=== PATIENT | male | born 1990 | race American Indian/Alaskan Native ===

== ENCOUNTER 2017-07-10 21:51 | Emergency (ER) | payer SELFPAY ==
[2017-07-10] MEDS ORDERED: TORADOL IM ONE (23:24)
[2017-07-10] MEDS ORDERED: NORCO 7.5/325 PO ONE (23:24)
[2017-07-10] MEDS ORDERED: DECADRON IM ONE (23:25)
--- NOTE | 2017-07-10 23:31 | Emergency Department Report ---
ED Extremity Problem HPI - General Chief complaint: Extremity Problem,Nontraumatic Stated complaint: FOOT PAIN Time Seen by Provider: 07/10/17 23:23 Source: patient Mode of arrival: Ambulatory Limitations: No Limitations - History of Present Illness Initial comments: 27-year-old male comes in today for left foot pain and swelling the last 3 days. Patient reports that he has a history of gout and then developed this since 2017. Patient reports he was taken allopurinol 100 mg which is not helping now. Patient denies any recent trauma. MD Complaint: extremity pain, extremity swelling -: days(s) (3) Location: left History of Same: Yes (gout) Radiation: proximal Severity scale (0 -10): 9 Quality: burning, aching, sharp Consistency: constant Improves with: nothing Worsens with: weight bearing, walking Associated Symptoms: denies other symptoms - Related Data Previous Rx's Medication Instructions Recorded Last Taken Type Colchicine 0.6 mg PO QDAY #7 tablet 07/11/17 Unknown Rx Indomethacin 50 mg PO Q8H #30 capsule 07/11/17 Unknown Rx Prednisone [predniSONE 10 mg 10 mg PO .TAPER #1 tab.ds.pk 07/11/17 Unknown Rx (6-Day Pack, 21 Tabs)] Allergies Allergy/AdvReac Type Severity Reaction Status Date / Time No Known Allergies Allergy Unverified 07/10/17 22:01 ED Review of Systems ROS: Stated complaint: FOOT PAIN Other details as noted in HPI Constitutional: denies: chills, fever Eyes: denies: eye pain, eye discharge, vision change ENT: denies: ear pain, throat pain Respiratory: denies: cough, shortness of breath, wheezing Cardiovascular: denies: chest pain, palpitations Endocrine: no symptoms reported Gastrointestinal: denies: abdominal pain, nausea, diarrhea Genitourinary: denies: urgency, dysuria Musculoskeletal: joint swelling, arthralgia Skin: denies: rash, lesions Neurological: denies: headache, weakness, paresthesias Psychiatric: denies: anxiety, depression Hematological/Lymphatic: denies: easy bleeding, easy bruising ED Past Medical Hx - Past Medical History Previous Medical History?: No - Surgical History Past Surgical History?: No - Social History Smoking Status: Current Every Day Smoker Substance Use Type: Alcohol - Medications Home Medications: Home Medications Medication Instructions Recorded Confirmed Last Taken Type Colchicine 0.6 mg PO QDAY #7 tablet 07/11/17 Unknown Rx Indomethacin 50 mg PO Q8H #30 capsule 07/11/17 Unknown Rx Prednisone [predniSONE 10 mg 10 mg PO .TAPER #1 tab.ds.pk 07/11/17 Unknown Rx (6-Day Pack, 21 Tabs)] ED Physical Exam - General Limitations: No Limitations General appearance: alert, in no apparent distress - Head Head exam: Present: atraumatic, normocephalic - Eye Eye exam: Present: normal appearance - ENT ENT exam: Present: mucous membranes moist - Neck Neck exam: Present: normal inspection - Respiratory Respiratory exam: Present: normal lung sounds bilaterally. Absent: respiratory distress - Cardiovascular Cardiovascular Exam: Present: regular rate, normal rhythm. Absent: systolic murmur, diastolic murmur, rubs, gallop - Rectal Rectal exam: Present: deferred - Expanded Lower Extremity Exam Left Hip exam: Present: full ROM Upper Leg exam: Present: normal inspection, full ROM Knee exam: Present: normal inspection, full ROM Lower Leg exam: Present: normal inspection, full ROM, tenderness Ankle exam: Present: full ROM, tenderness, swelling, erythema Foot/Toe exam: Present: full ROM, tenderness, swelling, erythema Neuro vascular tendon exam: Present: no vascular compromise - Back Exam Back exam: Present: normal inspection - Neurological Exam Neurological exam: Present: alert, oriented X3 - Psychiatric Psychiatric exam: Present: normal affect, normal mood - Skin Skin exam: Present: warm, dry, intact, normal color. Absent: rash ED Medical Decision Making - Radiology Data Radiology results: report reviewed, image reviewed IMPRESSION: There is no acute bony abnormality. There is generalized soft tissue swelling.. - Medical Decision Making Patient's been evaluated by this provider fast track. This provider's given patient dexamethasone 8 mg IM, Toradol 30 mg IM, Dexter 7.5 mg IM and waiting results from x-ray. Discussed patient with the patient to give a handout of foods to avoid. Place him on indomethacin as well as colchicine. And a prednisone pack. Patient verbalized understanding Critical care attestation.: If time is entered above; I have spent that time in minutes in the direct care of this critically ill patient, excluding procedure time. ED Disposition Clinical Impression: Gout attack Qualifiers: Gout site: foot Gout etiology: unspecified cause Laterality: right Qualified Code(s): M10.9 - Gout, unspecified Disposition: DC-01 TO HOME OR SELFCARE Is pt being admited?: No Does the pt Need Aspirin: No Condition: Stable Instructions: Acute Gouty Arthritis (ED) Additional Instructions: Please take medication as prescribed. Follow up with her primary care provider if symptoms persist or gets worse. Prescriptions: Colchicine 0.6 mg PO QDAY #7 tablet Indomethacin 50 mg PO Q8H #30 capsule Prednisone [predniSONE 10 mg (6-Day Pack, 21 Tabs)] 10 mg PO .TAPER #1 tab.ds.pk Referrals: PRIMARY CARE, [Primary Care Provider] - 3-5 Days Forms: Work/School Release Form(ED), Accompanied Note Print Language: LIBERIAN
--- NOTE | 2017-07-11 01:39 | XRay Report ---
FINAL REPORT PROCEDURE: XR FOOT 3+V LT TECHNIQUE: LEFT foot radiographs, AP, lateral, and oblique views. CPT 47875 HISTORY: swollen/red/painful COMPARISON: No prior studies are available for comparison. FINDINGS: Fracture (s) and/or Dislocation(s): None . Alignment: Normal . Joint space(s): Normal . Soft tissues: There is generalized soft tissue swelling.. Bone mineralization: Normal . Foreign bodies: None . Calcaneal spurring: None . IMPRESSION: There is no acute bony abnormality. There is generalized soft tissue swelling..
[2017-07-11] MEDS ORDERED: NORCO 5/325 ONE (02:20)
[2017-07-11] MEDS ORDERED: NORCO 5/325 PO ONE (02:21)
[2017-07-11 02:29] VITALS: BP 153/92
== END 2017-07-11 02:31 | disposition home or self-care (01) ==
LOC: ED 21:51
DX: M10.9 Gout, unspecified (principal); F17.200 Nicotine dependence, unspecified, uncomplicated
CPT/HCPCS: 73630; 96372; 99283; J1100; J1885

== ENCOUNTER 2018-09-19 05:04 | Inpatient (IN) | payer OTHER ==
[2018-09-19 06:11] LABS: BUN/Creatinine Ratio 25; Blood Urea Nitrogen 10 mg/dL (9-20); Calcium 8.8 mg/dL (8.4-10.2); Hemolysis Index 268
[2018-09-19 06:22] LABS: Basophils # (Auto) 0.5 K/mm3 (0.0-0.1); Eosinophils # (Auto) 0.1 K/mm3 (0.0-0.4); Monocytes # (Auto) 0.7 K/mm3 (0.0-0.8); Monocytes % (Auto) 5.6 % (0.0-7.3)
[2018-09-19 06:27] LABS: Alanine Aminotransferase 10 units/L (7-56); Albumin 3.6 g/dL (3.9-5)
[2018-09-19] MEDS ORDERED: HumuLIN R IV ONE ×2 (07:24→15:50)
[2018-09-19] MEDS ORDERED: NACL 0.9% 1000 ML 1,000 ML IV ONE ×3 (07:24→19:39)
[2018-09-19 07:49] LABS: Hematocrit 47.7 % (35.5-45.6); Hemoglobin 16.4 gm/dl (11.8-15.2); Red Blood Count 5.49 M/mm3 (3.65-5.03)
[2018-09-19 07:50] LABS: Mean Corpuscular HGB Conc 34 % (32-34); Mean Corpuscular Volume 87 fl (84-94)
[2018-09-19 07:51] LABS: Basophils % (Auto) 0.9 % (0.0-1.8); Lymphocytes # (Auto) 2.6 K/mm3 (1.2-5.4); Lymphocytes % (Auto) 19.6 % (13.4-35.0)
[2018-09-19] MEDS ORDERED: MORPHINE IV ONE ×2 (07:58→10:15)
--- NOTE | 2018-09-19 08:13 | XRay Report ---
ABDOMEN, 2 views: History: Abdominal pain. There is no evidence of free air beneath the diaphragms. The gas pattern within the abdomen is unremarkable. There is no evidence of bowel dilatation, significant air-fluid levels, or pathologic calcifications. There is mild to moderate stool throughout the right hemicolon. Organ shadows are unremarkable. IMPRESSION: Mild fecal retention. No acute process.
[2018-09-19 08:33] LABS: Platelet Count 158 K/mm3 (140-440)
--- NOTE | 2018-09-19 08:38 | Emergency Department Report ---
HPI - General Chief Complaint: Abdominal Pain Time Seen by Provider: 09/19/18 07:12 - HPI HPI: 28-year-old male presents to the emergency department with a complaint of some generalized abdominal pain radiating to the lower back, nausea and vomit ing, and some intermittent pain in the chest with breathing, that has been going on for the past week. The patient has a past medical history of hypertension and gout. He is a former smoker but denies any illicit drug use. He follows up with rayshawn castro and saw them about a week or so ago for some issues with his gout. He denies any recent travel or sick contacts at home. Patient also admits to increased urination and thirst over the past week. ED Past Medical Hx - Past Medical History Previous Medical History?: Yes Hx Hypertension: Yes Hx Arthritis: Yes (gout) - Surgical History Past Surgical History?: No - Social History Smoking Status: Former Smoker Substance Use Type: None - Medications Home Medications: Home Medications Medication Instructions Recorded Confirmed Last Taken Type No Known Home Medications [No 09/19/18 09/19/18 Unknown History Reported Home Medications] ED Review of Systems ROS: Stated complaint: CHEST PAIN,VOMITING,FREQENTLY URIAN Other details as noted in HPI Comment: All other systems reviewed and negative Constitutional: denies: chills, fever Eyes: denies: eye pain, vision change ENT: denies: ear pain, throat pain Respiratory: shortness of breath. denies: cough Cardiovascular: denies: palpitations, edema Endocrine: increased thirst, increased urine Gastrointestinal: abdominal pain, nausea, vomiting Genitourinary: frequency. denies: dysuria Musculoskeletal: back pain. denies: arthralgia Skin: denies: rash, lesions Neurological: denies: headache, weakness Physical Exam - Physical Exam Vital Signs: Vital Signs 09/19/18 05:23 Temperature 98.1 F Pulse Rate 121 H Respiratory 18 Rate Blood Pressure 155/105 O2 Sat by Pulse 96 Oximetry Physical Exam: GENERAL: The patient is well-developed well-nourished. HENT: Normocephalic. Atraumatic. Patient has moist mucous membranes. EYES: Extraocular motions are intact. Pupils equal reactive to light bilaterally. NECK: Supple. Trachea is midline. CHEST/LUNGS: Clear to auscultation. There is no respiratory distress noted. HEART/CARDIOVASCULAR: Regular. There is mild tachycardia. There is no murmur. ABDOMEN: Abdomen is soft. Upper abdominal tenderness to palpation. No guarding. Patient has normal bowel sounds. There is no abdominal distention. SKIN: Skin is warm and dry. NEURO: The patient is awake, alert, and oriented. The patient is cooperative. The patient has no focal neurologic deficits. The patient has normal speech. MUSCULOSKELETAL: There is no tenderness or deformity. There is no evidence of acute injury. ED Course Vital Signs 09/19/18 05:23 Temperature 98.1 F Pulse Rate 121 H Respiratory 18 Rate Blood Pressure 155/105 O2 Sat by Pulse 96 Oximetry ED Medical Decision Making - Lab Data Result diagrams: 09/19/18 05:41 09/19/18 05:41 - EKG Data -: EKG Interpreted by Me EKG shows normal: sinus rhythm, axis (left axis deviation), intervals, QRS complexes (Q waves in the inferior leads), ST-T waves Rate: tachycardia (116 bpm) - EKG Data When compared to previous EKG there are: previous EKG unavailable Interpretation: other (sinus tachycardia, left axis deviation, Q waves in inferior leads) - Radiology Data Radiology results: report reviewed, image reviewed interpreted by me: Chest x-ray does not show any acute process. There are no pleural effusions, obvious pneumonia and there is no pneumothorax. Abdominal x-ray shows some increased stool volume but otherwise nonspecific nonobstructive bowel gas. CT ABDOMEN PELVIS WITH CONTRAST: HISTORY: abdominal pain. COMPARISON: Abdominal x-ray performed earlier the same day. TECHNIQUE: Helical CT in 1.25mm intervals following IV contrast. Sagittal and coronal reconstructions. FINDINGS: Lung bases: Normal. Liver: There is mild diffuse fatty infiltration throughout the liver. No enlargement or focal mass. Biliary system: Normal. Pancreas: There is subtle thickening of the tail of the pancreas. There is trace fat stranding and fluid in the left anterior pararenal space. The remainder of the pancreas is unremarkable. Spleen: Normal. Kidneys/ureters/bladder: Normal. Adrenal glands: Normal. Aorta: Normal. Intestines: Mild fecal retention. Within normal limits otherwise given no oral contrast was administered. Appendix: Normal. Pelvic viscera: Normal. Ascites: Trace. Adenopathy: None. Musculoskeletal: Intact. IMPRESSION: There is subtle thickening of the pancreatic tail with trace surrounding fat stranding and fluid. Correlate for early acute pancreatitis. Fatty infiltration of the liver. Transcribed By: TTR Dictated By: ROGELIO DOTY JR, MD Electronically Authenticated By: ROGELIO DOTY JR, MD Signed Date/Time: 09/19/18 1001 - Medical Decision Making This patient presents to the emergency department with a complaint of some abdominal pain going into his back, as well as some intermittent chest discomfort with respirations. Patient's labs show hyponatremia with a sodium of 122 and one appears to be new onset diabetes mellitus with a blood sugar of about 400 from his serum draw. There is a mild elevation in the anion gap there is no venous acidosis and he appears low suspicion for diabetic ketoacidosis. Chest x-ray does not show any acute process. Abdominal x-ray shows nonspecific nonobstructive bowel gas. A CT scan of the abdomen and pelvis with IV contrast was done that came back showing signs of early pancreatitis. With the early pancreatitis, continued abdominal pain despite pain medication, and his hyponatremia, the patient will be presented to the admitting hospitalist Dr. Saucedo for either admission or further disposition. - Differential Diagnosis Pancreatitis, cholelithiasis, IA, PE, Bowel Obstruction Critical Care Time: No Critical care attestation.: If time is entered above; I have spent that time in minutes in the direct care of this critically ill patient, excluding procedure time. ED Disposition Clinical Impression: Diabetes mellitus, new onset, Acute hyperglycemia Pancreatitis Qualifiers: Chronicity: acute Pancreatitis type: unspecified pancreatitis type Acute pancreatitis complication: unspecified Qualified Code(s): K85.90 - Acute pancreatitis without necrosis or infection, unspecified Disposition: -09 OP ADMIT IP TO THIS HOSP Is pt being admited?: Yes Condition: Fair Instructions: Diabetes Mellitus Type 2 in Adults (ED) Referrals: ARSENIO MICHEL MD [Primary Care Provider] - 3-5 Days Time of Disposition: 15:47
--- NOTE | 2018-09-19 09:06 | XRay Report ---
PROCEDURE: XR CHEST 1V AP TECHNIQUE: Chest radiograph single view. HISTORY: Chest Pain COMPARISONS: None . FINDINGS: No mediastinal shift. Cardiac silhouette is not enlarged. No pneumothorax, effusion, or focal pulmona ry opacity identified. No acute skeletal findings. IMPRESSION: No acute pulmonary finding identified. This document is electronically signed by Donavan Montoya MD., September 19 2018 09:04:29 AM ET
--- NOTE | 2018-09-19 10:06 | Cat Scan Report ---
CT ABDOMEN PELVIS WITH CONTRAST: HISTORY: abdominal pain. COMPARISON: Abdominal x-ray performed earlier the same day. TECHNIQUE: Helical CT in 1.25mm intervals following IV contrast. Sagittal and coronal reconstructions. FINDINGS: Lung bases: Normal. Liver: There is mild diffuse fatty infiltration throughout the liver. No enlargement or focal mass. Biliary system: Normal. Pancreas: There is subtle thickening of the tail of the pancreas. There is trace fat stranding and fluid in the left anterior pararenal space. The remainder of the pancreas is unremarkable. Spleen: Normal. Kidneys/ureters/bladder: Normal. Adrenal glands: Normal. Aorta: Normal. Intestines: Mild fecal retention. Within normal limits otherwise given no oral contrast was administered. Appendix: Normal. Pelvic viscera: Normal. Ascites: Trace. Adenopathy: None. Musculoskeletal: Intact. IMPRESSION: There is subtle thickening of the pancreatic tail with trace surrounding fat stranding and fluid. Correlate for early acute pancreatitis. Fatty infiltration of the liver.
[2018-09-19 10:43] LABS: Bilirubin,Urine NEG (Negative); Blood,Urine NEG (Negative); Color,Urine Straw (Yellow); Protein,Urine <15 mg/dL mg/dL (Negative); Urobilinogen,Urine < 2.0 mg/dL (<2.0)
[2018-09-19] MEDS ORDERED: NACL 0.9% 1000 ML 2,000 ML IV ONE (12:39)
[2018-09-19 14:39] LABS: Amphetamine Screen,Urine PRESUMPTIVE NEGATIVE; Benzodiazepines Screen,Urine PRESUMPTIVE NEGATIVE; Cannabinoid Screen,Urine PRESUMPTIVE NEGATIVE; Cocaine Screen,Urine PRESUMPTIVE NEGATIVE; Methadone Screen,Urine PRESUMPTIVE NEGATIVE; Opiate Screen,Urine PRESUMPTIVE NEGATIVE
[2018-09-19 16:04] LABS: BUN/Creatinine Ratio 14; Blood Urea Nitrogen 7 mg/dL (9-20); Calcium 8.2 mg/dL (8.4-10.2); Hemolysis Index 471
[2018-09-19] MEDS ORDERED: D50W (25GM) Syringe IV PRN (18:39)
[2018-09-19] MEDS ORDERED: PROVENTIL IH PRN (18:39)
[2018-09-19] MEDS ORDERED: SODIUM CHLORIDE FLUSH SYRINGE 10 ML IV PRN (18:39)
--- NOTE | 2018-09-19 18:43 | History and Physical Report ---
History of Present Illness Chief complaint: I feel nauseated,and my stomach is cramping History of present illness: 28 YO Male with Obesity presents to ED for evaluation. Pt states that he has experienced abdominal cramping, nausea, and multiple episodes of vomiting over the past 1 week with persistent symptoms over the same time frame. Pt acknowledges polydipsia, polyuria, and polyphagia. Pt transoprted to [facility] via private vehicle. Pt seen and evaluated in ED and found to have new onset Diabetes complicated by DKA, as well as SIRS. Pt initiated on DKA protocol and admitted to ICU. Pt denies fever, chills, CP, Palpitations, Productive cough, recent ill contacts, BRBPR, Unintentional weight loss, or skin rash. Pt also initiated on empiric antibiotic therapy for SIRS. Past History Past Medical History: diabetes Past Surgical History: No surgical history, Other (reviewed) Social history: single. denies: smoking, alcohol abuse, prescription drug abuse Family history: diabetes, hypertension Medications and Allergies Allergies Allergy/AdvReac Type Severity Reaction Status Date / Time No Known Allergies Allergy Unverified 07/10/17 22:01 Home Medications Medication Instructions Recorded Confirmed Last Taken Type No Known Home Medications [No 09/19/18 09/19/18 Unknown History Reported Home Medications] Active Meds: Active Medications Albuterol (Proventil) 2.5 mg IH Q3HRT PRN PRN Reason: Shortness Of Breath Dextrose (D50w (25gm) Syringe) 0 ml IV PRN PRN PRN Reason: Hypoglycemia Insulin Human Regular 100 (units/ Sodium Chloride) 100 mls @ 1 mls/hr IV TITR DANIEL; Protocol Sodium Chloride (Nacl 0.9% 1000 Ml) 1,000 mls @ 999 mls/hr IV BOLUS ONE Stop: 09/19/18 19:39 Potassium Chloride/Dextrose/Sod Cl (D5w/0.45% Nacl/Kcl 20 Meq) 20 meq in 1,000 mls @ 125 mls/hr IV DIRECT DANIEL Potassium Chloride (Kcl 10meq/100ml) 10 meq in 100 mls @ 100 mls/hr IV Q1H DANIEL Stop: 09/19/18 22:59 Oxycodone/Acetaminophen (Percocet 5/325) 1 tab PO Q6H PRN PRN Reason: Pain, Moderate (4-6) Sodium Chloride (Sodium Chloride Flush Syringe 10 Ml) 10 ml IV BID DANIEL Sodium Chloride (Sodium Chloride Flush Syringe 10 Ml) 10 ml IV PRN PRN PRN Reason: LINE FLUSH Review of Systems Constitutional: no weight loss, no weight gain, no fever, no chills Ears, nose, mouth and throat: no ear pain, no ear discharge, no tinnitis, no decreased hearing, no nose pain Cardiovascular: no chest pain, no orthopnea, no palpitations, no rapid/irregular heart beat, no edema, no syncope Respiratory: no cough, no cough with sputum, no excessive sputum, no hemoptysis, no shortness of breath Gastrointestinal: nausea, vomiting, no constipation, no change in bowel habits, no hematemesis, no BRBPR, no melena, no hematochezia, no loss of appetite Genitourinary Male: no hematuria, no flank pain, no discharge, no urinary frequency, no urinary hesitancy Rectal: no pain, no incontinence, no bleeding Musculoskeletal: no neck stiffness, no neck pain, no shooting arm pain, no arm n umbness/tingling, no low back pain Integumentary: no rash, no pruritis, no redness, no sores, no wounds Neurological: no transient paralysis, no paralysis, no weakness, no parathesias, no numbness, no tingling, no syncope Psychiatric: no anxiety, no memory loss, no change in sleep habits, no sleep disturbances, no insomnia Endocrine: polyphagia, polydipsia, polyuria, no cold intolerance, no heat i ntolerance Hematologic/Lymphatic: no easy bruising, no easy bleeding, no lymphadenopathy, no lymphedema Allergic/Immunologic: no urticaria, no allergic rhinitis, no wheezing, no persistent infections Exam - Constitutional Vitals: Temp Pulse Resp BP Pulse Ox 98.6 F 87 32 H 132/82 97 09/19/18 08:50 09/19/18 15:00 09/19/18 15:00 09/19/18 15:00 09/19/18 15:00 General appearance: Present: mild distress - EENT Eyes: Present: PERRL ENT: hearing intact, clear oral mucosa - Neck Neck: Present: supple, normal ROM - Respiratory Respiratory effort: normal Respiratory: bilateral: CTA - Cardiovascular Heart Sounds: Present: S1 & S2. Absent: rub, click - Extremities Extremities: pulses symmetrical, No edema Peripheral Pulses: within normal limits - Abdominal General gastrointestinal: Present: soft, non-tender, non-distended, normal bowel sounds Male genitourinary: Present: normal - Integumentary Integumentary: Present: clear, warm, dry - Musculoskeletal Musculoskeletal: gait normal, strength equal bilaterally - Psychiatric Psychiatric: appropriate mood/affect, intact judgment & insight - Neurologic Neurologic: CNII-XII intact, moves all extremities Results - Labs CBC & Chem 7: 09/19/18 05:41 09/19/18 15:28 Labs: Abnormal lab results 09/19/18 09/19/18 09/19/18 Range/Units 05:38 05:41 05:41 WBC 12.7 H (4.5-11.0) K/mm3 RBC 5.49 H (3.65-5.03) M/mm3 Hgb 16.4 H (11.8-15.2) gm/dl Hct 47.7 H (35.5-45.6) % RDW 13.0 L (13.2-15.2) % Baso # 0.5 H (0.0-0.1) K/mm3 Seg Neutrophils # 9.3 H (1.8-7.7) K/mm3 Sodium 122 L (137-145) mmol/L Potassium (3.6-5.0) mmol/L Chloride 82.8 L (98-107) mmol/L Carbon Dioxide 19 L (22-30) mmol/L BUN (9-20) mg/dL Creatinine 0.4 L (0.8-1.5) mg/dL Glucose 409 H (75-100) mg/dL POC Glucose 350 H (70-105) Hemoglobin A1c (4-6) % Calcium (8.4-10.2) mg/dL Albumin 3.6 L (3.9-5) g/dL Ur Specific [place] (1.003-1.030) 09/19/18 09/19/18 09/19/18 Range/Units 07:56 10:26 10:35 WBC (4.5-11.0) K/mm3 RBC (3.65-5.03) M/mm3 Hgb (11.8-15.2) gm/dl Hct (35.5-45.6) % RDW (13.2-15.2) % Baso # (0.0-0.1) K/mm3 Seg Neutrophils # (1.8-7.7) K/mm3 Sodium (137-145) mmol/L Potassium (3.6-5.0) mmol/L Chloride (98-107) mmol/L Carbon Dioxide (22-30) mmol/L BUN (9-20) mg/dL Creatinine (0.8-1.5) mg/dL Glucose (75-100) mg/dL POC Glucose 329 H 285 H (70-105) Hemoglobin A1c (4-6) % Calcium (8.4-10.2) mg/dL Albumin (3.9-5) g/dL Ur Specific [place] 1.055 H (1.003-1.030) 09/19/18 09/19/18 09/19/18 Range/Units 15:28 15:28 15:51 WBC (4.5-11.0) K/mm3 RBC (3.65-5.03) M/mm3 Hgb (11.8-15.2) gm/dl Hct (35.5-45.6) % RDW (13.2-15.2) % Baso # (0.0-0.1) K/mm3 Seg Neutrophils # (1.8-7.7) K/mm3 Sodium 128 L (137-145) mmol/L Potassium 5.1 H D (3.6-5.0) mmol/L Chloride 93.9 L (98-107) mmol/L Carbon Dioxide 14 L (22-30) mmol/L BUN 7 L (9-20) mg/dL Creatinine 0.5 L (0.8-1.5) mg/dL Glucose 260 H (75-100) mg/dL POC Glucose 491 H (70-105) Hemoglobin A1c 12.5 H (4-6) % Calcium 8.2 L (8.4-10.2) mg/dL Albumin (3.9-5) g/dL Ur Specific [place] (1.003-1.030) Assessment and Plan - Patient Problems (1) DKA (diabetic ketoacidoses) Current Visit: Yes Status: Acute Qualifiers: Diabetes mellitus complication detail: without coma Plan to address problem: DKA Protocol: IVF resuscitation therapy, monitor uop q shift, insulin drip, serial bmp, monitor anion gap. The high probability of a clinically significant, sudden or life threatening deterioration of the [endocrine, renal] system(s) required my full and direct attention, intervention and personal management. The aggregate critical care time was [65] minutes. This time is in addition to time spent performing reported procedures but includes the following: [x] Data Review and interpretation [x] Patient assessment and monitoring of vital signs [x] Documentation [x] Medication orders and management (2) Acidosis Current Visit: Yes Status: Acute Plan to address problem: IV bicarbonate, IVF resuscitation therapy, repeat bmp (3) SIRS (systemic inflammatory response syndrome) Current Visit: Yes Status: Acute Plan to address problem: CBC, Chest x ray, urinalysis, empiric IV antibiotic therapy (4) Obesity (BMI 30-39.9) Current Visit: Yes Status: Acute Plan to address problem: balanced diet, increased physical activity at discharge. (5) DVT prophylaxis Current Visit: Yes Status: Acute Plan to address problem: SCD to BLE while in bed., prophylactic anticoagulation
[2018-09-19] MEDS ORDERED: D5W/0.45% NACL/KCL 20 MEQ 20 MEQ/1,000 ML BAG IV SCH (19:00)
[2018-09-19] MEDS ORDERED: HumuLIN R 100 UNITS in NACL 0.9% 99 ML IV SCH (19:00)
[2018-09-19] MEDS ORDERED: KCL 10MEQ/100ML 10 MEQ/100 ML BAG IV ONE (19:13)
[2018-09-19 19:24] LABS: BUN/Creatinine Ratio 14; Blood Urea Nitrogen 7 mg/dL (9-20); Calcium 8.5 mg/dL (8.4-10.2); Hemolysis Index 638
[2018-09-19] MEDS: KCL 10MEQ/100ML 10 MEQ/100 ML BAG IV SCH ×2 (19:30→23:22)
[2018-09-19 21:21] LABS: BUN/Creatinine Ratio 16; Blood Urea Nitrogen 8 mg/dL (9-20); Calcium 8.1 mg/dL (8.4-10.2); Hemolysis Index 360
[2018-09-19] MEDS ORDERED: D5NS 1,000 ML IV SCH (22:00)
[2018-09-19] MEDS ORDERED: MORPHINE IV PRN (22:17)
[2018-09-19] MEDS: LOVENOX SUB-Q SCH (22:27)
[2018-09-19] MEDS: SODIUM CHLORIDE FLUSH SYRINGE 10 ML IV SCH (22:29)
[2018-09-19] MEDS: ROCEPHIN/NS 1 GM/50 ML 1 GM/50 ML BAG IV SCH (22:36)
[2018-09-20 00:06] LABS: BUN/Creatinine Ratio 18; Blood Urea Nitrogen 7 mg/dL (9-20); Calcium 8.2 mg/dL (8.4-10.2); Hemolysis Index 401
[2018-09-20] MEDS: KCL 10MEQ/100ML 10 MEQ/100 ML BAG IV SCH ×4 (00:24→07:19)
[2018-09-20 01:23] LABS: BUN/Creatinine Ratio 14; Blood Urea Nitrogen 7 mg/dL (9-20); Calcium 8.2 mg/dL (8.4-10.2); Hemolysis Index 249
[2018-09-20] MEDS ORDERED: KCL 10MEQ/100ML 10 MEQ/100 ML BAG IV SCH (03:00)
[2018-09-20 05:46] LABS: BUN/Creatinine Ratio 15; Blood Urea Nitrogen 6 mg/dL (9-20); Calcium 8.3 mg/dL (8.4-10.2); Hemolysis Index 74
[2018-09-20] MEDS ORDERED: D5W/NS W/KCL 20MEQ 20 MEQ/1,000 ML BAG IV SCH (06:00)
--- NOTE | 2018-09-20 09:19 | Progress Note ---
Assessment and Plan Assessment and plan: Diabetic ketoacidosis. Patient still on Insulin drip Anion gap is closed Will dc insulin drip Start Novolin 70/30 bid SIRS Supportive care Hyponatremia start NS Obesity. I counseled him on diet and exercise to lose weight History Interval history: Less abdominal pain Nausea Hospitalist Physical - Physical exam Narrative exam: Gen: Not in acute distress, Lying in bed,Obese HEENT: Normocephalic, atraumatic Neck: supple, no JVD Heart: S1 and S2 reg, no murmurs, rubs or gallop Lungs: Clear, no crackles, no wheeze Abd: soft, non tender, non distended, normal BS Ext: Bilateral leg edema less, no clubbing, no cyanosis, Neuro: Awake,alert, oriented x 3, moves all ext, non focal Psych:Normal mood - Constitutional Vitals: Temp Pulse Resp BP Pulse Ox 98.8 F 100 H 31 H 137/85 97 09/20/18 02:47 09/20/18 07:00 09/20/18 07:00 09/20/18 07:00 09/20/18 07:00 Results - Labs CBC & Chem 7: 09/19/18 05:41 09/20/18 10:59 Labs: Laboratory Last Values WBC 12.7 K/mm3 (4.5-11.0) H 09/19/18 05:41 RBC 5.49 M/mm3 (3.65-5.03) H 09/19/18 05:41 Hgb 16.4 gm/dl (11.8-15.2) H 09/19/18 05:41 Hct 47.7 % (35.5-45.6) H 09/19/18 05:41 MCV 87 fl (84-94) 09/19/18 05:41 MCH 30 pg (28-32) 09/19/18 05:41 MCHC 34 % (32-34) 09/19/18 05:41 RDW 13.0 % (13.2-15.2) L 09/19/18 05:41 Plt Count 158 K/mm3 (140-440) 09/19/18 05:41 Lymph % (Auto) 19.6 % (13.4-35.0) 09/19/18 05:41 [place] % (Auto) 5.6 % (0.0-7.3) 09/19/18 05:41 Eos % (Auto) 1.0 % (0.0-4.3) 09/19/18 05:41 Baso % (Auto) 0.9 % (0.0-1.8) 09/19/18 05:41 Lymph # 2.6 K/mm3 (1.2-5.4) 09/19/18 05:41 [place] # 0.7 K/mm3 (0.0-0.8) 09/19/18 05:41 Eos # 0.1 K/mm3 (0.0-0.4) 09/19/18 05:41 Baso # 0.5 K/mm3 (0.0-0.1) H 09/19/18 05:41 Seg Neutrophils % 70.0 % (40.0-70.0) 09/19/18 05:41 Seg Neutrophils # 9.3 K/mm3 (1.8-7.7) H 09/19/18 05:41 < 135 ng/mlDDU (0-234) 09/19/18 08:58 VBG pH 7.375 (7.320-7.420) 09/19/18 08:34 Sodium 132 mmol/L (137-145) L 09/20/18 04:21 Potassium 3.2 mmol/L (3.6-5.0) L 09/20/18 04:21 Chloride 100.3 mmol/L (98-107) 09/20/18 04:21 Carbon Dioxide 17 mmol/L (22-30) L 09/20/18 04:21 18 mmol/L 09/20/18 04:21 BUN 6 mg/dL (9-20) L 09/20/18 04:21 0.4 mg/dL (0.8-1.5) L 09/20/18 04:21 Estimated GFR > 60 ml/min 09/20/18 04:21 15 % 09/20/18 04:21 Glucose 144 mg/dL (75-100) H 09/20/18 04:21 POC Glucose 103 (70-105) 09/20/18 08:42 12.5 % (4-6) H 09/19/18 15:28 Calcium 8.3 mg/dL (8.4-10.2) L 09/20/18 04:21 0.30 mg/dL (0.1-1.2) 09/19/18 05:41 AST 5 units/L (5-40) 09/19/18 05:41 ALT 10 units/L (7-56) 09/19/18 05:41 115 units/L (35-129) 09/19/18 05:41 7.3 g/dL (6.3-8.2) 09/19/18 05:41 3.6 g/dL (3.9-5) L 09/19/18 05:41 1.0 % 09/19/18 05:41 37 units/L (13-60) 09/19/18 05:41 Straw (Yellow) 09/19/18 10:35 Clear (Clear) 09/19/18 10:35 5.0 (5.0-7.0) 09/19/18 10:35 Ur Specific [place] 1.055 (1.003-1.030) H 09/19/18 10:35 <15 mg/dl mg/dL (Negative) 09/19/18 10:35 >=500 mg/dL (Negative) 09/19/18 10:35 80 mg/dL (Negative) 09/19/18 10:35 Neg (Negative) 09/19/18 10:35 Neg (Negative) 09/19/18 10:35 Neg (Negative) 09/19/18 10:35 < 2.0 mg/dL (<2.0) 09/19/18 10:35 Ur Leukocyte Esterase Neg (Negative) 09/19/18 10:35 1.0 /HPF (0.0-6.0) 09/19/18 10:35 1.0 /HPF (0.0-6.0) 09/19/18 10:35 Presumptive negative 09/19/18 14:00 Presumptive negative 09/19/18 14:00 Ur Barbiturates Screen Presumptive negative 09/19/18 14:00 Ur Phencyclidine Scrn Presumptive negative 09/19/18 14:00 Ur Amphetamines Screen Presumptive negative 09/19/18 14:00 U Benzodiazepines Scrn Presumptive negative 09/19/18 14:00 Presumptive negative 09/19/18 14:00 U Marijuana (THC) Screen Presumptive negative 09/19/18 14:00 Disclamer 09/19/18 14:00 Plasma/Serum Alcohol < 0.01 % (0-0.07) 09/19/18 13:04 Active Medications - Current Medications Current Medications: Generic Name Dose Route Start Last Admin Trade Name Mya PRN Reason Stop Dose Admin Albuterol 2.5 mg 09/19/18 18:39 Proventil IH Q3HRT PRN Shortness Of Breath Dextrose 0 ml 09/19/18 18:39 D50w (25gm) Syringe IV PRN PRN Hypoglycemia Enoxaparin Sodium 40 mg 09/19/18 22:00 09/19/18 22:27 Lovenox SUB-Q 40 mg QDAY@2200 DANIEL Administration Insulin Human Regular 100 100 mls @ 1 mls/hr 09/19/18 19:00 09/20/18 08:00 units/ Sodium Chloride IV 3 units/hr TITR DANIEL 3 mls/hr Titration Protocol 1 UNITS/HR Ceftriaxone Sodium 1 gm in 50 mls @ 100 mls/hr 09/19/18 19:30 09/19/18 23:06 Rocephin/Ns 1 Gm/50 Ml IV Infused Q24H DANIEL Infusion Protocol Potassium Chloride/Dextrose/Sod Cl 20 meq in 1,000 mls @ 125 mls/hr 09/20/18 06:00 09/20/18 08:00 D5w/Ns W/Kcl 20meq IV 125 mls/hr DIRECT DANIEL Infusion Insulin Human Isoph/Insulin Regular 12 unit 09/20/18 10:00 Humulin 70/30 SUB-Q BIDDIAB DANIEL Morphine Sulfate 2 mg 09/19/18 22:17 09/19/18 22:22 Morphine IV 09/20/18 23:59 2 mg Q3H PRN Administration Pain, Moderate (4-6) Oxycodone/Acetaminophen 1 tab 09/19/18 18:39 Percocet 5/325 PO Q6H PRN Pain, Moderate (4-6) Sodium Chloride 10 ml 09/19/18 22:00 09/19/18 22:29 Sodium Chloride Flush Syringe 10 Ml IV 10 ml BID DANIEL Administration Sodium Chloride 10 ml 09/19/18 18:39 Sodium Chloride Flush Syringe 10 Ml IV PRN PRN LINE FLUSH
[2018-09-20] MEDS: SODIUM CHLORIDE FLUSH SYRINGE 10 ML IV SCH ×2 (09:43→21:31)
[2018-09-20] MEDS: NS/KCL 20MEQ 20 MEQ/1,000 ML BAG IV SCH ×2 (11:00→21:29)
[2018-09-20] MEDS: PERCOCET 5/325 PO PRN ×2 (11:28→20:13)
[2018-09-20 11:34] LABS: BUN/Creatinine Ratio 13; Blood Urea Nitrogen 5 mg/dL (9-20); Calcium 8.4 mg/dL (8.4-10.2); Hemolysis Index 113
[2018-09-20 20:45] LABS: BUN/Creatinine Ratio 14; Blood Urea Nitrogen 7 mg/dL (9-20); Calcium 8.7 mg/dL (8.4-10.2); Hemolysis Index 107
[2018-09-20] MEDS: LOVENOX SUB-Q SCH (21:30)
[2018-09-21] MEDS: ROCEPHIN/NS 1 GM/50 ML 1 GM/50 ML BAG IV SCH (00:11)
[2018-09-21] MEDS: NS/KCL 20MEQ 20 MEQ/1,000 ML BAG IV SCH (08:20)
[2018-09-21 09:08] LABS: Hematocrit 39.6 % (35.5-45.6); Hemoglobin 14.1 gm/dl (11.8-15.2); Mean Corpuscular HGB Conc 36 % (32-34); Mean Corpuscular Volume 87 fl (84-94); Platelet Count 127 K/mm3 (140-440); Red Blood Count 4.57 M/mm3 (3.65-5.03); Red Cell Distribution Width 13.4 % (13.2-15.2)
[2018-09-21] MEDS: SODIUM CHLORIDE FLUSH SYRINGE 10 ML IV SCH (09:27)
[2018-09-21 09:30] LABS: BUN/Creatinine Ratio 10; Blood Urea Nitrogen 5 mg/dL (9-20); Calcium 8.4 mg/dL (8.4-10.2); Hemolysis Index 22
[2018-09-21] MEDS ORDERED: SODIUM BICARBONATE PO SCH (12:30)
[2018-09-21 15:30] LABS: BUN/Creatinine Ratio 18; Blood Urea Nitrogen 7 mg/dL (9-20); Calcium 8.7 mg/dL (8.4-10.2); Hemolysis Index 21
--- NOTE | 2018-09-21 15:35 | Discharge Summary ---
Providers - Providers Date of Admission: 09/19/18 18:39 Date of discharge: 09/21/18 Attending physician: RATNA SOMMER 09/19/18 18:39 Consult to Dietitian/Nutrition [CONS] Routine Physician Instructions: Reason For Exam: Reason for Consult: Diet education [facility] MD Hospitalization Condition: Fair Hospital course: Patient is 28 yo with Obesity presents to ED for evaluation. Patient stated that he has experienced abdominal cramping, nausea, and multiple episodes of vomiting over the past 1 week with persistent symptoms over the same time frame. he also complained of polydipsia, polyuria, and polyphagia. He was seen and evaluated in ED. Labs revealed Glucose 350, CO2 19 , anion gap 24. He was diagnosed with new onset Diabetes with diabetes ketoacidosis and SIRS. He was started on Insulin drip, iv fluids and admitted to ICU. Glucose level improved, anion gap closed , so was switched to subcut Insulin, transferred to medical floor. He continued to improve and was dscharged home following day on Novoloin 70/30 at 12 units subcut bid. Total time spent on discharge, 32 mins Disposition: DC- TO HOME OR SELFCARE - Discharge Diagnoses (1) DKA (diabetic ketoacidoses) Status: Acute Qualifiers: Diabetes mellitus complication detail: without coma (2) Diabetes mellitus, new onset Status: Acute (3) Obesity (BMI 30-39.9) Status: Acute (4) SIRS (systemic inflammatory response syndrome) Status: Acute (5) Hyponatremia Status: Acute (6) Leukocytosis Status: Acute Core Measure Documentation - Palliative Care Palliative Care/ Comfort Measures: Not Applicable - Core Measures Any of the following diagnoses?: none Exam - Constitutional Vitals: Temp Pulse Resp BP Pulse Ox 98.4 F 79 18 125/81 97 09/21/18 11:41 09/21/18 11:41 09/21/18 11:41 09/21/18 11:41 09/21/18 11:41 Plan Activity: advance as tolerated Diet: low fat, low cholesterol, low salt, diabetic Additional Instructions: 1.Follow up with PCP or Eileen zhu in 1 week. 2.Measure fingerstick glucose 4 times daily and show records to PCP Follow up with: EILEEN MICHEL MD [Primary Care Provider] - 3-5 Days Prescriptions: Insulin NPH/Regular [NovoLIN 70/30] 12 unit SUB-Q BIDDIAB #1 vial
[2018-09-21 18:36] VITALS: BP 135/92
== END 2018-09-21 19:50 | disposition home or self-care (01) | DRG 438 ==
LOC: ED 05:04 → CC1 18:39 → 3A 09-20 18:06
PROVIDERS: ADMIT Internal Medicine; ATTEND Internal Medicine
DX: K85.90 Acute pancreatitis without necrosis or infection, unspecified (principal); E11.10 Type 2 diabetes mellitus with ketoacidosis without coma; R65.10 Systemic inflammatory response syndrome (SIRS) of non-infectious origin without acute organ dysfunction; E87.1 Hypo-osmolality and hyponatremia; M10.9 Gout, unspecified; E66.9 Obesity, unspecified; I10 Essential (primary) hypertension; Z87.891 Personal history of nicotine dependence; Z83.3 Family history of diabetes mellitus; Z82.49 Family history of ischemic heart disease and other diseases of the circulatory system; Z68.37 Body mass index [BMI] 37.0-37.9, adult; Z71.3 Dietary counseling and surveillance
CPT/HCPCS: 36415; 71045; 74019; 74177; 80048; 80053; 80307; 80320; 81001; 82805; 82962; 83036; 83690; 85025; 85027; 85379; 93005; 93010; G0378; G0480; J0696; J1650; J1815; J2270; J3480; J7030; J7042; Q9967

== ENCOUNTER 2020-02-14 11:47 | Emergency (ER) | payer SELFPAY ==
--- NOTE | 2020-02-14 13:11 | Event Note ---
ED Screening Note ED Screening Note: 29-year-old male with past medical history of diabetes since emerge department complaining of a 3-day history of bilateral upper abdominal pain associated with nausea and vomiting and no diarrhea. Pain has been progressively worsening since since since the onset is having trouble keeping fluids down reports no hemoptysis no hematemesis no hematochezia. No fever, chills, sweats. This initial assessment/diagnostic orders/clinical plan/treatment(s) is/are subject to change based on patients health status, clinical progression and re- assessment by fellow clinical providers in the ED. Further treatment and workup at subsequent clinical providers discretion. Patient/guardian urged not to elope from the ED as their condition may be serious if not clinically assessed and managed. Initial orders include: Labs, urinalysis, IV fluids and reevaluate vitals
[2020-02-14 13:45] LABS: Bilirubin,Urine NEG (Negative); Blood,Urine NEG (Negative); Color,Urine Yellow (Yellow); Mucus,Urine FEW /HPF; Urobilinogen,Urine < 2.0 mg/dL (<2.0)
[2020-02-14 14:10] LABS: Basophils # (Auto) 0.2 K/mm3 (0.0-0.1); Basophils % (Auto) 1.4 % (0.0-1.8); Eosinophils % (Auto) 0.3 % (0.0-4.3); Lymphocytes # (Auto) 1.5 K/mm3 (1.2-5.4); Lymphocytes % (Auto) 10.7 % (13.4-35.0); Mean Corpuscular HGB Conc 36 % (32-34); Mean Corpuscular Volume 87 fl (84-94); Monocytes # (Auto) 0.8 K/mm3 (0.0-0.8); Monocytes % (Auto) 5.6 % (0.0-7.3); Red Blood Count 5.43 M/mm3 (3.65-5.03); Red Cell Distribution Width 12.8 % (13.2-15.2)
[2020-02-14 14:15] LABS: Albumin 4.2 g/dL (3.9-5); Bilirubin,Direct 0.3 mg/dL (0-0.2); Blood Urea Nitrogen 8 mg/dL (9-20); Calcium 9.3 mg/dL (8.4-10.2); Hemolysis Index 192
[2020-02-14 14:19] LABS: BUN/Creatinine Ratio 16
[2020-02-14 14:34] LABS: Alanine Aminotransferase < 5 units/L (7-56); Hematocrit 47.2 % (35.5-45.6)
[2020-02-14 15:09] LABS: Platelet Count 156 K/mm3 (140-440)
[2020-02-14] MEDS ORDERED: SODIUM CHLORIDE 0.9% 1000 ML 1,000 ML IV ONE (15:40)
[2020-02-14] MEDS ORDERED: MORPHINE 4 MG/1 ML INJ IV ONE (15:40)
[2020-02-14] MEDS ORDERED: ONDANSETRON 4 MG/2 ML INJ IV ONE (15:40)
--- NOTE | 2020-02-14 16:12 | Emergency Department Report ---
ED Abdominal Pain HPI - General Chief Complaint: Abdominal Pain Stated Complaint: ABD PAIN Time Seen by Provider: 02/14/20 15:27 Source: patient Mode of arrival: Ambulatory Limitations: No Limitations - History of Present Illness Initial Comments: Patient is a 29-year-old male presents emergency room with complaints of generalized abdominal pain that began yesterday. He has associated nausea and vomiting. He states he had approximately 3 episodes of vomiting. He denies any diarrhea. He had a normal bowel movement this morning. He denies any sick contacts or recent travel. He denies any fever, hematochezia, melena, hematemesis. He has a past medical history of DM, HTN, gout. He states that he takes metformin 500 mg twice daily. He denies any allergies to medications. - Related Data Previous Rx's Medication Instructions Recorded Last Taken Type Insulin NPH/Regular [NovoLIN 70/30] 12 unit SUB-Q BIDDIAB #1 vial 09/21/18 Unknown Rx Morphine [Morphine TAB] 15 mg PO Q8HR PRN #10 tablet 02/14/20 Unknown Rx Ondansetron [Zofran Odt] 4 mg PO Q8HR PRN #10 tab.rapdis 02/14/20 Unknown Rx amLODIPine 5 mg PO DAILY #30 tab 02/14/20 Unknown Rx metFORMIN [Glucophage] 500 mg PO BID #60 tablet 02/14/20 Unknown Rx Allergies Allergy/AdvReac Type Severity Reaction Status Date / Time No Known Allergies Allergy Unverified 07/10/17 22:01 ED Review of Systems ROS: Stated complaint: ABD PAIN Other details as noted in HPI Comment: All other systems reviewed and negative ED Past Medical Hx - Past Medical History Previous Medical History?: Yes Hx Hypertension: Yes Hx Diabetes: Yes Hx Arthritis: Yes - Social History Smoking Status: Never Smoker Substance Use Type: None - Medications Home Medications: Home Medications Medication Instructions Recorded Confirmed Last Taken Type Insulin NPH/Regular [NovoLIN 70/30] 12 unit SUB-Q BIDDIAB #1 vial 09/21/18 Unknown Rx Morphine [Morphine TAB] 15 mg PO Q8HR PRN #10 tablet 02/14/20 Unknown Rx Ondansetron [Zofran Odt] 4 mg PO Q8HR PRN #10 tab.rapdis 02/14/20 Unknown Rx amLODIPine 5 mg PO DAILY #30 tab 02/14/20 Unknown Rx metFORMIN [Glucophage] 500 mg PO BID #60 tablet 02/14/20 Unknown Rx ED Physical Exam - General Limitations: No Limitations General appearance: alert, in no apparent distress - Head Head exam: Present: atraumatic, normocephalic - Eye Eye exam: Present: normal appearance - ENT ENT exam: Present: mucous membranes moist - Respiratory Respiratory exam: Present: normal lung sounds bilaterally. Absent: respiratory distress, wheezes, rales, rhonchi, stridor, chest wall tenderness, accessory muscle use, decreased breath sounds, prolonged expiratory - Cardiovascular Cardiovascular Exam: Present: regular rate, normal rhythm, normal heart sounds. Absent: systolic murmur, diastolic murmur, rubs, gallop - GI/Abdominal GI/Abdominal exam: Present: soft, tenderness (mild epigastric), normal bowel sounds. Absent: distended, guarding, rebound, rigid - Neurological Exam Neurological exam: Present: alert, oriented X3 - Psychiatric Psychiatric exam: Present: normal affect, normal mood - Skin Skin exam: Present: warm, dry, intact ED Course Vital Signs 02/14/20 02/14/20 02/14/20 13:12 16:17 16:30 Temperature 99 F Pulse Rate 131 H 86 Respiratory 20 18 16 Rate Blood Pressure 173/107 Blood Pressure 156/94 [Left] O2 Sat by Pulse 95 98 Oximetry ED Medical Decision Making - Lab Data Result diagrams: 02/14/20 13:34 02/14/20 13:34 Lab Results 02/14/20 02/14/20 02/14/20 Range/Units 12:13 13:32 13:34 WBC 13.6 H (4.5-11.0) K/mm3 RBC 5.43 H (3.65-5.03) M/mm3 Hgb 17.0 H (11.8-15.2) gm/dl Hct 47.2 H (35.5-45.6) % MCV 87 (84-94) fl MCH 31 (28-32) pg MCHC 36 H (32-34) % RDW 12.8 L (13.2-15.2) % Plt Count 156 (140-440) K/mm3 Lymph % (Auto) 10.7 L (13.4-35.0) % [place] % (Auto) 5.6 (0.0-7.3) % Eos % (Auto) 0.3 (0.0-4.3) % Baso % (Auto) 1.4 (0.0-1.8) % Lymph # (Auto) 1.5 (1.2-5.4) K/mm3 [place] # (Auto) 0.8 (0.0-0.8) K/mm3 Eos # (Auto) 0.0 (0.0-0.4) K/mm3 Baso # (Auto) 0.2 H (0.0-0.1) K/mm3 Seg Neutrophils % 82.0 H (40.0-70.0) % Seg Neutrophils # 11.2 H (1.8-7.7) K/mm3 VBG pH (7.320-7.420) Sodium (137-145) mmol/L Potassium (3.6-5.0) mmol/L Chloride (98-107) mmol/L Carbon Dioxide (22-30) mmol/L Anion Gap mmol/L BUN (9-20) mg/dL Creatinine (0.8-1.3) mg/dL Estimated GFR ml/min BUN/Creatinine Ratio % Glucose (75-100) mg/dL POC Glucose 252 H (70-105) mg/dL Calcium (8.4-10.2) mg/dL Total Bilirubin (0.1-1.2) mg/dL Direct Bilirubin (0-0.2) mg/dL Indirect Bilirubin mg/dL AST (5-40) units/L ALT (7-56) units/L Alkaline Phosphatase (35-129) units/L Total Protein (6.3-8.2) g/dL Albumin (3.9-5) g/dL Albumin/Globulin Ratio % Lipase (13-60) units/L Urine Color Yellow (Yellow) Urine Turbidity Clear (Clear) Urine pH 5.0 (5.0-7.0) Ur Specific [place] 1.037 H (1.003-1.030) Urine Protein 100 mg/dl (Negative) mg/dL Urine Glucose (UA) >=500 (Negative) mg/dL Urine Ketones 80 (Negative) mg/dL Urine Blood Neg (Negative) Urine Nitrite Neg (Negative) Urine Bilirubin Neg (Negative) Urine Urobilinogen < 2.0 (<2.0) mg/dL Ur Leukocyte Esterase Neg (Negative) Urine WBC (Auto) 1.0 (0.0-6.0) /HPF Urine RBC (Auto) 1.0 (0.0-6.0) /HPF U Epithel Cells (Auto) < 1.0 (0-13.0) /HPF Urine Mucus Few /HPF 02/14/20 02/14/20 Range/Units 13:34 15:57 WBC (4.5-11.0) K/mm3 RBC (3.65-5.03) M/mm3 Hgb (11.8-15.2) gm/dl Hct (35.5-45.6) % MCV (84-94) fl MCH (28-32) pg MCHC (32-34) % RDW (13.2-15.2) % Plt Count (140-440) K/mm3 Lymph % (Auto) (13.4-35.0) % [place] % (Auto) (0.0-7.3) % Eos % (Auto) (0.0-4.3) % Baso % (Auto) (0.0-1.8) % Lymph # (Auto) (1.2-5.4) K/mm3 [place] # (Auto) (0.0-0.8) K/mm3 Eos # (Auto) (0.0-0.4) K/mm3 Baso # (Auto) (0.0-0.1) K/mm3 Seg Neutrophils % (40.0-70.0) % Seg Neutrophils # (1.8-7.7) K/mm3 VBG pH 7.376 (7.320-7.420) Sodium 129 L (137-145) mmol/L Potassium 4.0 (3.6-5.0) mmol/L Chloride 91.3 L (98-107) mmol/L Carbon Dioxide 23 (22-30) mmol/L Anion Gap 19 mmol/L BUN 8 L (9-20) mg/dL Creatinine 0.5 L (0.8-1.3) mg/dL Estimated GFR > 60 ml/min BUN/Creatinine Ratio 16 % Glucose 268 H (75-100) mg/dL POC Glucose (70-105) mg/dL Calcium 9.3 (8.4-10.2) mg/dL Total Bilirubin 0.60 (0.1-1.2) mg/dL Direct Bilirubin 0.3 H (0-0.2) mg/dL Indirect Bilirubin 0.3 mg/dL AST < 5 L (5-40) units/L ALT < 5 L (7-56) units/L Alkaline Phosphatase 100 (35-129) units/L Total Protein 7.8 (6.3-8.2) g/dL Albumin 4.2 (3.9-5) g/dL Albumin/Globulin Ratio 1.2 % Lipase 28 (13-60) units/L Urine Color (Yellow) Urine Turbidity (Clear) Urine pH (5.0-7.0) Ur Specific [place] (1.003-1.030) Urine Protein (Negative) mg/dL Urine Glucose (UA) (Negative) mg/dL Urine Ketones (Negative) mg/dL Urine Blood (Negative) Urine Nitrite (Negative) Urine Bilirubin (Negative) Urine Urobilinogen (<2.0) mg/dL Ur Leukocyte Esterase (Negative) Urine WBC (Auto) (0.0-6.0) /HPF Urine RBC (Auto) (0.0-6.0) /HPF U Epithel Cells (Auto) (0-13.0) /HPF Urine Mucus /HPF Vital Signs 02/14/20 02/14/20 02/14/20 13:12 16:17 16:30 Temperature 99 F Pulse Rate 131 H 86 Respiratory 20 18 16 Rate Blood Pressure 173/107 Blood Pressure 156/94 [Left] O2 Sat by Pulse 95 98 Oximetry - Radiology Data Radiology results: report reviewed CT ABDOMEN AND PELVIS WITH CONTRAST INDICATION / CLINICAL INFORMATION: abd pain, n/v. TECHNIQUE: Axial CT images were obtained through the abdomen and pelvis after 100 mL of Omnipaque [address] scans at this location are performed using CT dose reduction for ALARA by means of automated exposure control. COMPARISON: 09/19/2018 FINDINGS: LOWER CHEST: Visualized lung bases are clear. LIVER: There is hepatic steatosis with areas of geographic fatty sparing involving the right hepatic lobe. GALLBLADDER/BILIARY TREE: Unremarkable PANCREAS: There is peripancreatic inflammatory stranding involving the body and tail of the pancreas. No perip ancreatic fluid collection. The parenchyma appears homogeneous. SPLEEN: Unremarkable ADRENALS: Unremarkable KIDNEYS / URETER: Unremarkable URINARY BLADDER: Unremarkable REPRODUCTIVE ORGANS: Unremarkable STOMACH / SMALL BOWEL: Stomach and small bowel are normal in caliber. No evidence of bowel inflammation. COLON: Colon is unremarkable. The appendix is normal in caliber. LYMPH NODES: No significant adenopathy. VASCULATURE: No significant abnormality. OTHER: No free air, free fluid, or focal fluid collection is identified. SKELETAL SYSTEM: Mild scattered degenerative changes of the spine. No acute osseous findings. IMPRESSION: 1. Peripancreatic inflammatory stranding involving the body and tail the pancreas, compatible with early acute interstitial edematous pancreatitis. No peripancreatic fluid collection. 2. Hepatic steatosis and other chronic, incidental findings as above. Signer Name: Mauri Marvin MD Signed: 02/14/2020 3:37 PM Workstation Name: [id number] - Medical Decision Making Patient is a 29-year-old male presents emergency room with complaints of generalized abdominal pain that began yesterday. He has associated nausea and vomiting. He states he had approximately 3 episodes of vomiting. He denies any diarrhea. He had a normal bowel movement this morning. He denies any sick contacts or recent travel. He denies any fever, hematochezia, melena, hematemesis. He has a past medical history of DM, HTN, gout. He states that he takes metformin 500 mg twice daily. He denies any allergies to medications. Initial vitals with elevated heart rate and blood pressure which improved upon repeat. Patient has mild epigastric tenderness on exam, no guarding, no rebound, no rigidity, normal bowel sounds. Labs with elevated white blood cell count at 13.6, dehydration, elevated blood glucose at 268. UA also shows signs of dehydration, otherwise stable. Corrected sodium is 132 based on MD Calc calculations. CT abd pelvis with IV contrast: 1. Peripancreatic inflammatory stranding involving the body and tail the pancreas, compatible with early acute interstitial edematous pancreatitis. No peripancreatic fluid collection. 2. Hepatic steatosis and other chronic, incidental findings as above. Patient has had acute pancreatitis in the past. His lipase is normal today. Patient given pain medication, Zofran, IV fluids while in the emergency department and symptoms improved and he was feeling much better ready go home. Patient was p.o. challenged while in the emergency department was able to tolerate p.o. intake without difficulty. His pain has improved and he has had no episodes of vomiting while in the emergency department. Discussed case with Dr. Jimenez, ER attending who advised that patient may be discharged home with outpatient follow-up, to discuss return precautions with patient, advised to give patient IV insulin, advised to give patient prescription for morphine sulfate, Zofran, amlodipine, metformin, also advised to have patient avoid Metformin for the next 48 hours due to contrast load. pt given prescriptions. advised pt Please take medication as prescribed. Please increase your water intake over the next several days. Eat a bland liquid diet and slowly advance your diet as tolerated. Do not drive or operate heavy machinery while taking pain medication. Please do not take your Metformin (diabetes medication) for the next 48 hours. Please eat a low carbohydrate/low sugar diet. Incorporate 30 to 60 minutes of daily exercise. Follow-up with your primary care doctor. Follow-up with a GI doctor. Return to emergency room immediately for any new or worsening symptoms including but not limited to worsening pain, fever, unable to tolerate by mouth intake, constant vomiting, etc. - Differential Diagnosis Pancreatitis, cholecystitis, obstruction, PUD, GERD, mass, abscess, cyst Critical care attestation.: If time is entered above; I have spent that time in minutes in the direct care of this critically ill patient, excluding procedure time. ED Disposition Clinical Impression: Hyperglycemia Abdominal pain Qualifiers: Abdominal location: upper abdomen, unspecified Qualified Code(s): R10.10 - Upper abdominal pain, unspecified Nausea & vomiting Qualifiers: Vomiting type: unspecified Vomiting Intractability: non-intractable Qualified Code(s): R11.2 - Nausea with vomiting, unspecified Pancreatitis Qualifiers: Chronicity: acute Pancreatitis type: unspecified pancreatitis type Acute pancr eatitis complication: no infection or necrosis Qualified Code(s): K85.90 - Acute pancreatitis without necrosis or infection, unspecified Disposition: DC-01 TO HOME OR SELFCARE Is pt being admited?: No Does the pt Need Aspirin: No Condition: Stable Instructions: Acute Pancreatitis, Diabetes Mellitus and Nutrition, Adult Additional Instructions: Please take medication as prescribed. Please increase your water intake over the next several days. Eat a bland liquid diet and slowly advance your diet as tolerated. Do not drive or operate heavy machinery while taking pain medication. Please do not take your Metformin (diabetes medication) for the next 48 hours. Please eat a low carbohydrate/low sugar diet. Incorporate 30 to 60 minutes of daily exercise. Follow-up with your primary care doctor. [place] w-up with a GI doctor. Return to emergency room immediately for any new or worsening symptoms including but not limited to worsening pain, fever, unable to tolerate by mouth intake, constant vomiting, etc. Prescriptions: amLODIPine 5 mg PO DAILY #30 tab metFORMIN [Glucophage] 500 mg PO BID #60 tablet Morphine [Morphine TAB] 15 mg PO Q8HR PRN #10 tablet PRN Reason: pain Ondansetron [Zofran Odt] 4 mg PO Q8HR PRN #10 tab.rapdis PRN Reason: Nausea And Vomiting Referrals: PRIMARY CARE, [Primary Care Provider] - 2-3 Days [facility] [Provider Group] - 2-3 Days Time of Disposition: 17:29 Print Language: BURMESE
[2020-02-14 16:31] VITALS: BP 156/94
--- NOTE | 2020-02-14 16:41 | Cat Scan Report ---
CT ABDOMEN AND PELVIS WITH CONTRAST INDICATION / CLINICAL INFORMATION: abd pain, n/v. TECHNIQUE: Axial CT images were obtained through the abdomen and pelvis after 100 mL of Omnipaque [address] scans at this location are performed using CT dose reduction for ALARA by means of automated exposure control. COMPARISON: 09/19/2018 FINDINGS: LOWER CHEST: Visualized lung bases are clear. LIVER: There is hepatic steatosis with areas of geographic fatty sparing involving the right hepatic lobe. GALLBLADDER/BILIARY TREE: Unremarkable PANCREAS: There is peripancreatic inflammatory stranding involving the body and tail of the pancreas. No peripancreatic fluid collection. The parenchyma appears homogeneous. SPLEEN: Unremarkable ADRENALS: Unremarkable KIDNEYS / URETER: Unremarkable URINARY BLADDER: Unremarkable REPRODUCTIVE ORGANS: Unremarkable STOMACH / SMALL BOWEL: Stomach and small bowel are normal in caliber. No evidence of bowel inflammati on. COLON: Colon is unremarkable. The appendix is normal in caliber. LYMPH NODES: No significant adenopathy. VASCULATURE: No significant abnormality. OTHER: No free air, free fluid, or focal fluid collection is identified. SKELETAL SYSTEM: Mild scattered degenerative changes of the spine. No acute osseous findings. IMPRESSION: 1. Peripancreatic inflammatory stranding involving the body and tail the pancreas, compatible with ea rly acute interstitial edematous pancreatitis. No peripancreatic fluid collection. 2. Hepatic steatosis and other chronic, incidental findings as above. Signer Name: Mauri Marvin MD Signed: 02/14/2020 4:37 PM Workstation Name: [id number]
[2020-02-14] MEDS ORDERED: INSULIN REGULAR, HUMAN 100 UNIT/ML 3ML VIAL IV ONE (16:50)
[2020-02-14] MEDS ORDERED: INSULIN REGULAR, HUMAN 100 UNITS/1 ML ONE (17:00)
--- NOTE | 2020-02-14 17:01 | Event Note ---
Date: 02/14/20 The patient was evaluated in the emergency department for symptoms described in the history of present illness. He/she was evaluated in the context of the global COVID-19 pandemic, which necessitated consideration that the patient might be at risk for infection with the virus that causes COVID-19. Institutional protocols and algorithms that pertain to the evaluation of patients at risk for COVID-19 are in a state of rapid change based on information released by regulatory bodies including the CDC and federal and state organizations. These policies and algorithms were followed during the patient's care in the emergency department. Please note that these policies, procedures and recommendations changed on a rapid basis. Patient is a 29-year-old gentleman, sleeping in his stretcher, with absolutely no abdominal tenderness, rebound or guarding, who tolerated liquid feeds that I personally provided to him. Able to drink water without difficulty. Suspect mild pancreatitis. Leukocytosis likely a stress reaction. "Hyponatremia", likely pseudohyponatremia, likely secondary to hyperglycemia. Corrected sodium for hyperglycemia is: 133 mEq/L Corrected Sodium (Jose, 1999) With no active vomiting, soft benign abdomen, improvement in vital signs, ability to tolerate liquid feeds, with my pain that this patient is suitable for trial of outpatient management with close follow-up. He is instructed to not take Metformin for the next 48 hours. He will need to adhere to a diabetic appropriate diet. He can be discharged with pain medication and nausea medication. CT ABDOMEN AND PELVIS WITH CONTRAST INDICATION / CLINICAL INFORMATION: abd pain, n/v. TECHNIQUE: Axial CT images were obtained through the abdomen and pelvis after 100 mL of Omnipaque [address] scans at this location are performed using CT dose reduction for ALARA by means of automated exposure control. COMPARISON: 09/19/2018 FINDINGS: LOWER CHEST: Visualized lung bases are clear. LIVER: There is hepatic steatosis with areas of geographic fatty sparing involving the right hepatic lobe. GALLBLADDER/BILIARY TREE: Unremarkable PANCREAS: There is peripancreatic inflammatory stranding involving the body and tail of the pancreas. No peripancreatic fluid collection. The parenchyma appears homogeneous. SPLEEN: Unremarkable ADRENALS: Unremarkable KIDNEYS / URETER: Unremarkable URINARY BLADDER: Unremarkable REPRODUCTIVE ORGANS: Unremarkable STOMACH / SMALL BOWEL: Stomach and small bowel are normal in caliber. No evidence of bowel inflammation. COLON: Colon is unremarkable. The appendix is normal in caliber. LYMPH NODES: No significant adenopathy. VASCULATURE: No significant abnormality. OTHER: No free air, free fluid, or focal fluid collection is identified. SKELETAL SYSTEM: Mild scattered degenerative changes of the spine. No acute osseous findings. IMPRESSION: 1. Peripancreatic inflammatory stranding involving the body and tail the pancreas, compatible with early acute interstitial edematous pancreatitis. No peripancreatic fluid collection. 2. Hepatic steatosis and other chronic, incidental findings as above. Signer Name: Mauri Marvin MD Signed: 02/14/2020 3:37 PM Workstation Name: [id number] Vital Signs 02/14/20 02/14/20 02/14/20 13:12 16:17 16:30 Temperature 99 F Pulse Rate 131 H 86 Respiratory 20 18 16 Rate Blood Pressure 173/107 Blood Pressure 156/94 [Left] O2 Sat by Pulse 95 98 Oximetry Lab Results 02/14/20 02/14/20 02/14/20 Range/Units 12:13 13:32 13:34 WBC 13.6 H (4.5-11.0) K/mm3 RBC 5.43 H (3.65-5.03) M/mm3 Hgb 17.0 H (11.8-15.2) gm/dl Hct 47.2 H (35.5-45.6) % MCV 87 (84-94) fl MCH 31 (28-32) pg MCHC 36 H (32-34) % RDW 12.8 L (13.2-15.2) % Plt Count 156 (140-440) K/mm3 Lymph % (Auto) 10.7 L (13.4-35.0) % [place] % (Auto) 5.6 (0.0-7.3) % Eos % (Auto) 0.3 (0.0-4.3) % Baso % (Auto) 1.4 (0.0-1.8) % Lymph # (Auto) 1.5 (1.2-5.4) K/mm3 [place] # (Auto) 0.8 (0.0-0.8) K/mm3 Eos # (Auto) 0.0 (0.0-0.4) K/mm3 Baso # (Auto) 0.2 H (0.0-0.1) K/mm3 Seg Neutrophils % 82.0 H (40.0-70.0) % Seg Neutrophils # 11.2 H (1.8-7.7) K/mm3 Sodium (137-145) mmol/L Potassium (3.6-5.0) mmol/L Chloride (98-107) mmol/L Carbon Dioxide (22-30) mmol/L Anion Gap mmol/L BUN (9-20) mg/dL Creatinine (0.8-1.3) mg/dL Estimated GFR ml/min BUN/Creatinine Ratio % Glucose (75-100) mg/dL POC Glucose 252 H (70-105) mg/dL Calcium (8.4-10.2) mg/dL Total Bilirubin (0.1-1.2) mg/dL Direct Bilirubin (0-0.2) mg/dL Indirect Bilirubin mg/dL AST (5-40) units/L ALT (7-56) units/L Alkaline Phosphatase (35-129) units/L Total Protein (6.3-8.2) g/dL Albumin (3.9-5) g/dL Albumin/Globulin Ratio % Lipase (13-60) units/L Urine Color Yellow (Yellow) Urine Turbidity Clear (Clear) Urine pH 5.0 (5.0-7.0) Ur Specific [place] 1.037 H (1.003-1.030) Urine Protein 100 mg/dl (Negative) mg/dL Urine Glucose (UA) >=500 (Negative) mg/dL Urine Ketones 80 (Negative) mg/dL Urine Blood Neg (Negative) Urine Nitrite Neg (Negative) Urine Bilirubin Neg (Negative) Urine Urobilinogen < 2.0 (<2.0) mg/dL Ur Leukocyte Esterase Neg (Negative) Urine WBC (Auto) 1.0 (0.0-6.0) /HPF Urine RBC (Auto) 1.0 (0.0-6.0) /HPF U Epithel Cells (Auto) < 1.0 (0-13.0) /HPF Urine Mucus Few /HPF 02/14/20 Range/Units 13:34 WBC (4.5-11.0) K/mm3 RBC (3.65-5.03) M/mm3 Hgb (11.8-15.2) gm/dl Hct (35.5-45.6) % MCV (84-94) fl MCH (28-32) pg MCHC (32-34) % RDW (13.2-15.2) % Plt Count (140-440) K/mm3 Lymph % (Auto) (13.4-35.0) % [place] % (Auto) (0.0-7.3) % Eos % (Auto) (0.0-4.3) % Baso % (Auto) (0.0-1.8) % Lymph # (Auto) (1.2-5.4) K/mm3 [place] # (Auto) (0.0-0.8) K/mm3 Eos # (Auto) (0.0-0.4) K/mm3 Baso # (Auto) (0.0-0.1) K/mm3 Seg Neutrophils % (40.0-70.0) % Seg Neutrophils # (1.8-7.7) K/mm3 Sodium 129 L (137-145) mmol/L Potassium 4.0 (3.6-5.0) mmol/L Chloride 91.3 L (98-107) mmol/L Carbon Dioxide 23 (22-30) mmol/L Anion Gap 19 mmol/L BUN 8 L (9-20) mg/dL Creatinine 0.5 L (0.8-1.3) mg/dL Estimated GFR > 60 ml/min BUN/Creatinine Ratio 16 % Glucose 268 H (75-100) mg/dL POC Glucose (70-105) mg/dL Calcium 9.3 (8.4-10.2) mg/dL Total Bilirubin 0.60 (0.1-1.2) mg/dL Direct Bilirubin 0.3 H (0-0.2) mg/dL Indirect Bilirubin 0.3 mg/dL AST < 5 L (5-40) units/L ALT < 5 L (7-56) units/L Alkaline Phosphatase 100 (35-129) units/L Total Protein 7.8 (6.3-8.2) g/dL Albumin 4.2 (3.9-5) g/dL Albumin/Globulin Ratio 1.2 % Lipase 28 (13-60) units/L Urine Color (Yellow) Urine Turbidity (Clear) Urine pH (5.0-7.0) Ur Specific [place] (1.003-1.030) Urine Protein (Negative) mg/dL Urine Glucose (UA) (Negative) mg/dL Urine Ketones (Negative) mg/dL Urine Blood (Negative) Urine Nitrite (Negative) Urine Bilirubin (Negative) Urine Urobilinogen (<2.0) mg/dL Ur Leukocyte Esterase (Negative) Urine WBC (Auto) (0.0-6.0) /HPF Urine RBC (Auto) (0.0-6.0) /HPF U Epithel Cells (Auto) (0-13.0) /HPF Urine Mucus /HPF
== END 2020-02-14 18:35 | disposition home or self-care (01) ==
LOC: ED 11:47
DX: K85.90 Acute pancreatitis without necrosis or infection, unspecified (principal); E11.65 Type 2 diabetes mellitus with hyperglycemia; M19.90 Unspecified osteoarthritis, unspecified site; I10 Essential (primary) hypertension; Z79.899 Other long term (current) drug therapy; Z79.4 Long term (current) use of insulin
CPT/HCPCS: 36415; 74177; 80048; 80076; 81001; 82805; 82962; 83690; 85025; 96361; 96374; 96375; 99284; J2270; J2405; J7030; Q9967; J1815